=== PATIENT | male | born 1970 | race Two or more races ===

== ENCOUNTER 2017-12-10 09:27 | Inpatient (IN) | payer MEDICAID ==
[~2017-12-10] VITALS: Ht 172.7 cm; Wt 86.9 kg
[2017-12-10 09:33] VITALS: Ht 172.7 cm; Wt 86.9 kg
[2017-12-10 10:16] LABS: BASOPHIL % 0.7 % (0-2); RED CELL DISTRIBUTION WIDTH 14.7 % (11.5-14.5)
[2017-12-10 10:20] LABS: CARBON DIOXIDE 27.4 mmol/L (21-32); CHLORIDE SERUM 97 mmol/L (98-107); GFR1 > 60 mL/min; GLUCOSE SERUM 119 mg/dL (74-106); POTASSIUM SERUM 3.2 mmol/L (3.5-5.1); SODIUM SERUM 133 mmol/L (136-145)
[2017-12-10 10:21] LABS: PLATELET COUNT 33 x10^3mcL (130-400)
[2017-12-10 10:24] LABS: ALKALINE PHOSPHATASE 130 U/L (46-116); ALT/SGPT 247 U/L (16-63); AST/SGOT 247 U/L (15-37); BILIRUBIN TOTAL 4.3 mg/dL (0.20-1.00); TOTAL PROTEIN, SERUM 8.1 g/dL (6.4-8.2)
[2017-12-10 10:25] LABS: ALBUMIN 3.3 g/dL (3.4-5.0)
[2017-12-10 13:10] VITALS: BP 160/93
[2017-12-10 13:16] LABS: PHOSPHOROUS 3.2 mg/dL (2.5-4.9)
[2017-12-10 13:23] LABS: T3 TOTAL 0.88 ng/mL
[2017-12-10 13:32] LABS: MAGNESIUM 1.2 mg/dL (1.8-2.4)
[2017-12-10 13:38] LABS: CHOLESTEROL/HDL RATIO 8.3
[2017-12-10 14:33] LABS: FREE T4 1.18 ng/dL (0.76-1.46); FREE THYROXINE INDEX 1.8 ug/dL (1.4-4.5); T4(THYROXINE) 4.8 ug/dL (4.7-13.3)
[2017-12-10 17:46] VITALS: BP 154/83
[2017-12-10 19:58] VITALS: BP 145/86
[2017-12-10 22:26] LABS: UA SPECIFIC GRAVITY <=1.005 (1.005-1.035); microscopic required? YES; urine erythrocyte 2+ (NEGATIVE)
[2017-12-10 22:36] LABS: AMPHETAMINE QUAL UR NONE DETECTED (See below)
[2017-12-11 05:37] VITALS: BP 134/83
[2017-12-11 07:02] LABS: MAGNESIUM 1.8 mg/dL (1.8-2.4); PHOSPHOROUS 2.7 mg/dL (2.5-4.9)
[2017-12-11 07:36] LABS: BASOPHIL % 0.5 % (0-2)
[2017-12-11 07:37] LABS: RED CELL DISTRIBUTION WIDTH 14.8 % (11.5-14.5)
[2017-12-11 07:38] LABS: PLATELET COUNT 29 x10^3mcL (130-400)
[2017-12-11 08:22] LABS: RED BLOOD CELLS 3.92 M/mm3 (4.52-5.90)
[2017-12-11 08:54] LABS: ALKALINE PHOSPHATASE 104 U/L (46-116); ALT/SGPT 173 U/L (16-63); AST/SGOT 143 U/L (15-37); BILIRUBIN TOTAL 3.46 mg/dL (0.20-1.00); CALCIUM 7.6 mg/dL (8.5-10.1); CARBON DIOXIDE 23.3 mmol/L (21-32); CHLORIDE SERUM 107 mmol/L (98-107); CREATININE SERUM 0.8 mg/dL (0.7-1.3); GFR1 > 60 mL/min; GLUCOSE SERUM 95 mg/dL (74-106); POTASSIUM SERUM 3.8 mmol/L (3.5-5.1); SODIUM SERUM 140 mmol/L (136-145); TOTAL PROTEIN, SERUM 6.7 g/dL (6.4-8.2)
[2017-12-11 08:55] LABS: ALBUMIN 2.8 g/dL (3.4-5.0)
[2017-12-11 09:49] VITALS: BP 136/90
[2017-12-11 10:30] LABS: IRON 202 ug/dL (65-170); TOTAL IRON BINDING CAPACITY 213 ug/dL (250-450)
[2017-12-11 12:58] VITALS: BP 139/85
[2017-12-11 16:49] VITALS: BP 122/74
[2017-12-11 21:00] VITALS: BP 136/83
[2017-12-12 06:02] LABS: BASOPHIL % 0.7 % (0-2)
[2017-12-12 06:11] VITALS: BP 131/74
[2017-12-12 06:18] LABS: CALCIUM 7.9 mg/dL (8.5-10.1); CHLORIDE SERUM 111 mmol/L (98-107); CREATININE SERUM 0.8 mg/dL (0.7-1.3); GFR1 > 60 mL/min; GLUCOSE SERUM 94 mg/dL (74-106); MAGNESIUM 1.7 mg/dL (1.8-2.4); PHOSPHOROUS 2.5 mg/dL (2.5-4.9); POTASSIUM SERUM 4.1 mmol/L (3.5-5.1); SODIUM SERUM 143 mmol/L (136-145)
[2017-12-12 06:45] LABS: RED CELL DISTRIBUTION WIDTH 14.9 % (11.5-14.5)
[2017-12-12 08:30] LABS: PLATELET COUNT 31 x10^3mcL (130-400)
[2017-12-12 09:20] VITALS: BP 135/73
[2017-12-12 13:29] VITALS: BP 124/83
[2017-12-12] MEDS ORDERED: IND20 PO (14:25)
[2017-12-12] MEDS ORDERED: LIB25 PO (14:26)
[2017-12-12] MEDS ORDERED: THI100 PO (14:26)
[2017-12-12] MEDS ORDERED: NATURE'S BLEND F1 MG PO (14:27)
[2017-12-12] MEDS ORDERED: COLACE100 MG PO (14:28)
[2017-12-12] MEDS ORDERED: METAMUCIL0.4 GM PO (14:28)
[2017-12-12] MEDS ORDERED: LEVOFLOXACIN750 M1 PO (14:44)
[2017-12-12] MEDS ORDERED: FLA500 PO (14:44)
[2017-12-12 14:54] VITALS: BP 124/87
== END 2017-12-12 15:40 | disposition home or self-care (01) | DRG 254 ==
LOC: ED 09:27 → DU 11:45
PROVIDERS: Emergency Medicine; Family Medicine; Internal Medicine Gastroenterology
PROC: 0DB78ZX Excision of Stomach, Pylorus, Via Natural or Artificial Opening Endoscopic, Diagnostic (ICD-10-PCS; principal; 2017-12-12 08:00)
PROC: 0DJD8ZZ Inspection of Lower Intestinal Tract, Via Natural or Artificial Opening Endoscopic (ICD-10-PCS; 2017-12-12 08:00)
DX: K64.8 Other hemorrhoids (principal); D69.6 Thrombocytopenia, unspecified; E87.8 Other disorders of electrolyte and fluid balance, not elsewhere classified; E44.0 Moderate protein-calorie malnutrition; K92.2 Gastrointestinal hemorrhage, unspecified; E87.1 Hypo-osmolality and hyponatremia; E83.41 Hypermagnesemia; K70.30 Alcoholic cirrhosis of liver without ascites; F10.239 Alcohol dependence with withdrawal, unspecified; Y90.9 Presence of alcohol in blood, level not specified; E87.6 Hypokalemia; Z68.28 Body mass index [BMI] 28.0-28.9, adult; R31.9 Hematuria, unspecified; K70.10 Alcoholic hepatitis without ascites; E80.6 Other disorders of bilirubin metabolism; E66.3 Overweight; E02 Subclinical iodine-deficiency hypothyroidism
CPT/HCPCS: 43235; 45378; 83880; 84439; G0480; J0171; J1200; J1610; J1956; J2250; J2310; J3010; J3411; J3430; J3475; J3480; J3490; J7030; Q0092